=== PATIENT | female | born 1950 | race American Indian/Alaskan Native ===

== ENCOUNTER 2017-05-23 11:13 | Outpatient (CLI) | payer OTHER ==
--- NOTE | 2017-05-23 12:05 | Mammography Report ---
Screening mammogram: Right breast lumpectomy, radiation, and chemotherapy for cancer. Routine views are compared to prior exams dating back to 2015. There is scar retraction and focal nodule at surgery site in the superior right breast. The breast pattern bilaterally is otherwise relatively fatty replaced and unremarkable. These findings are all unchanged compared to prior exams. CAD used. Impression: Stable exam. Recommendation: Annual mammogram followup. BI-RADS CATEGORY: 2 = Benign ACR BI-RADS MAMMOGRAPHIC CODES: 0 = Needs additional imaging evaluation; 1 = Negative; 2 = Benign; 3 = Probably benign; 4 = Suspicious; 5 = Malignant; 6 = Known biopsy-proven malignancy COMMENT: 1. Dense breast tissue, i.e., adenosis, fibrocystic changes, etc., may obscure an underlying neoplasm. 2. Approximately 10% of cancers are not detected with mammography. 3. A negative mammography report should not delay biopsy if a clinically suspicious mass is present.
== END 2017-05-23 11:14 | disposition home or self-care (01) ==
LOC: MAMMO 11:13
PROVIDERS: ATTEND Internal Medicine
DX: Z12.31 Encounter for screening mammogram for malignant neoplasm of breast (principal); Z98.890 Other specified postprocedural states
CPT/HCPCS: 77067; G0202